=== PATIENT | male | born 1995 | race Caucasian/White ===

== ENCOUNTER 2017-06-15 22:20 | Emergency (ER) | payer OTHER ==
--- NOTE | 2017-06-15 22:34 | EDPHY ---
H & P Stated Complaint: cut R pinky finger on knife at work HPI/ROS: HPI CHIEF COMPLAINT: Right hand laceration HISTORY OF PRESENT ILLNESS: This patient very pleasant 21-year-old male, no significant medical history tells me his tetanus shot is up-to-date, presents emergency room with a laceration at the base of the 5th digit palmar side. Approximately 4 cm in length. He sustained this at work. He is neurovascular intact full range of motion no tendon injury no arterial injury. This happened at work. It was a clean knife. Past Medical History: No medical history Past Surgical History: Denies surgical history Social History: Denies daily use of drugs alcohol tobacco products. Family History: Noncontributory ROS REVIEW OF SYSTEMS: A comprehensive 10 point review of systems is otherwise negative aside from elements mentioned in the history of present illness. Exam Constitutional appears well nontoxic, triage nursing summary reviewed, vital signs reviewed, awake/alert. Eyes normal conjunctivae and sclera, EOMI, PERRLA. HENT normal inspection, atraumatic, moist mucus membranes, no epistaxis, neck supple/ no meningismus, no raccoon eyes. Respiratory clear to auscultation bilaterally, normal breath sounds, no respiratory distress, no wheezing. Cardiovascular rate normal, regular rhythm, no murmur, no edema, distal pulses normal. Gastrointestinal soft, non-tender, no rebound, no guarding, normal bowel sounds, no distension, no pulsatile mass. Genitourinary no CVA tenderness. Musculoskeletal no midline vertebral tenderness, full range of motion, no calf swelling, no tenderness of extremities, no meningismus, good pulses, neurovascularly intact. Skin right hand: Base of the 5th digit palmar side there is a 4 cm horizontally oriented laceration, no arterial injury no tendon injury, no deep structure, no bony vomit, neurovascular intact. pink, warm, & dry, no rash, skin atraumatic. Neurologic awake, alert and oriented x 3, AAOx3, moves all 4 extremities equally, motor intact, sensory intact, CN II-XII intact, normal cerebellar, normal vision, normal speech. Psychiatric normal mood/affect. Heme/Lymph/Immune no lymphadenopathy. Differential Diagnosis: Includes but is not limited to in a particular order hand laceration, soft tissue injury, need for wound care Medical Decision Making: Plan for this patient copiously irrigating clean his wound. His tetanus shot is up-to-date. His laceration need to be repaired under sterile conditions. Re-evaluation: Laceration Repair Procedure: Verbal Consent was obtained, Under sterile conditions, The patient had lidocaine with epinephrine used approximately 4ccs to local anesthetize the right hand palmar side 5th digit base Laceration. The wound was copiously irrigated with sterile fluid, the wound was explored for foreign bodies there were none visualized, the wound was explored with a sterile glove to the base. There are no deep structures involved, including no arterial injury. FOUR 6.O interrupted Sutures were placed in this patient's laceration. He had good close approximation of the wound edges. He Tolerated this well. Patient understands have sutures removed in 12 days. Keep his wound clean, dry , protected. Warm soapy water spine. Return if any worsening symptoms or signs of infection. Source: Patient - Personal History Current Tetanus/Diphtheria Vaccine: Yes Current Tetanus Diphtheria and Acellular Pertussis (TDAP): Yes - Medical/Surgical History Hx Asthma: No Hx Chronic Respiratory Disease: No Hx Diabetes: No Hx Cardiac Disease: No Hx Renal Disease: No Hx Cirrhosis: No Hx Alcoholism: No Hx HIV/AIDS: No Hx Splenectomy or Spleen Trauma: No Other PMH: denies - Social History Smoking Status: Former smoker Constitutional: Initial Vital Signs Temperature (C) 36.5 C 06/15/17 22:21 Heart Rate 69 06/15/17 22:21 Respiratory Rate 16 06/15/17 22:21 Blood Pressure 115/7 L 06/15/17 22:21 O2 Sat (%) 99 06/15/17 22:21 O2 Delivery Mode Room Air Allergies/Adverse Reactions: No Known Allergies Allergy (Unverified 06/15/17 22:24) Home Medications: Medication Instructions Recorded NK [No Known Home Meds] 06/15/17 Departure - Departure Disposition: Home, Routine, Self-Care Clinical Impression: Laceration Condition: Good Instructions: Laceration (ED), Care For Your Stitches (ED) Additional Instructions: 1.Your sutures need to be removed in 12 days. 2. Watch for signs of infection. 3. Return to the emergency room if you have any worsening symptoms questions or concerns. Referrals: ROSE FISCHER [Other] - As per Instructions
[2017-06-15 23:02] VITALS: BP 125/79; PULSE 65; RESP 20; TEMP 97.9; O2SAT 97
== END 2017-06-15 23:19 | disposition home or self-care (01) ==
PROC: 0HQFXZZ Repair Right Hand Skin, External Approach (ICD-10-PCS; principal; 2017-06-15)
DX: S61.411A Laceration without foreign body of right hand, initial encounter (principal); Z87.891 Personal history of nicotine dependence; W26.0XXA Contact with knife, initial encounter; Y92.69 Other specified industrial and construction area as the place of occurrence of the external cause; Y99.0 Civilian activity done for income or pay